=== PATIENT | female | born 2000 | race Caucasian/White ===

== ENCOUNTER 2021-03-11 18:13 | Emergency (ER) | payer OTHER ==
[2021-03-11] MEDS ORDERED: Sodium Chloride 0.9% 1,000 ML IV ONE ×2 (18:58→20:49)
[2021-03-11 19:32] LABS: BLOOD UREA NITROGEN,BUN 10 mg/dL (7.0-18.0); CARBON DIOXIDE,CO2 21.5 mmol/L (21.0-32.0); CHLORIDE,CL 101 mmol/L (98-107); GLUCOSE RANDOM 101 mg/dL (74-106); POTASSIUM,K 3.4 mmol/L (3.5-5.1); SODIUM,NA 139 mmol/L (136-145)
--- NOTE | 2021-03-11 21:02 | US ---
For Patients: As a result of the Century Cures Act, medical imaging exams and procedure reports are released immediately into your electronic medical record. You may view this report before your referring provider. If you have questions, please contact your health care provider. INDICATION: Nausea with elevated bilirubin. FINDINGS: The pancreas is mostly obscured by bowel gas. Gallbladder is unremarkable with no sonographic Prather sign reported and no filling defect. Common bile duct of 3 mm at the simba hepatis. Right kidney is 10 cm in length and sonographically unremarkable. No ascites in the field of view. Liver is normal size. No mass, cyst or ductal dilatation. IMPRESSION: No significant abnormality appreciated. Dictated by Domenico Gray MD @ 03/11/2021 9:02:[address] Domenico Gray @ Mar 11 2021 9:02PM
--- NOTE | 2021-03-11 21:02 | US ---
For Patients: As a result of the Cures Act, medical imaging exams and procedure reports are released immediately into your electronic medical record. You may view this report before your referring provider. If you have questions, please contact your health care provider. INDICATION: First trimester scan, establish dates. Nausea. Pain. TECHNIQUE: Real-time ward-scale imaging of the pelvis was performed. FINDINGS: Sonographic imaging demonstrates a single living intrauterine gestation. The embryo demonstrates a regular cardiac rate measuring 109 beats per minute. The embryo`s crown-rump length measurement of 4.6 mm corresponds to a gestational age of 6 weeks 2 days with a sonographic due date of 30 October 2021. There is a normal-appearing yolk sac. There are no gross abnormalities noted within the embryo at this early state of development. The placenta has not yet developed. The gestational sac has a normal appearance and there is no evidence of a perigestational hemorrhage. The amount of fluid within the sac appears appropriate for gestational age. The cervix is closed. The myometrium appears normal. The ovaries are of normal size. There are no suspicious fluid collections noted in the cul-de-sac. IMPRESSION: Normal first trimester OB ultrasound exam. Gestational age calculated at 6 weeks 2 days. Dictated by Domenico Gray MD @ 03/11/2021 9:00:[address] Domenico Gray @ Mar 11 2021 9:00PM
--- NOTE | 2021-03-11 21:07 | EDM.PDOC ---
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 Patient states she is unsure of her last menstrual cycle but believes to be approximately 4 to 5 weeks . Patient states that she has had a urine confirmation of and has her first OB visit back home in [place] on this coming . Patient states over the past 2 days, she suddenly has felt nauseous and vomiting. Patient states that she is only able to take small sips of fluid without vomiting over the past 2 days. Patient states she is having some upper abdominal pain with vomiting but states that she is not having abdominal pain at baseline. Patient states she has a history of migraine disorder and denies any other health history. Patient denies any trauma or injury or any other associative symptoms. Patient denies any vaginal bleeding or change in discharge. Patient denies fever, chills, chest pain, shortness of breath, or cough. Denies headache, neck stiff ness, change in vision, syncope, or near syncope. Denies diarrhea, constipation, or dysuria. Has not noted any blood in urine or stool. Review of systems: As per history of present illness and below otherwise all systems reviewed and negative. Past medical history: As per history of present illness and as reviewed below otherwise noncontributory. Surgical history: As per history of present illness and as reviewed below otherwise noncontributory. Social history: See social history for further information Family history: As per history of present illness and as reviewed below otherwise noncontributory. Physical exam: General: Patient is alert, oriented, and in no acute distress. Patient laying comfortably on exam table. Vitals stable and reviewed by me. HEENT: Atraumatic, normocephalic, pupils equal and reactive bilaterally, negative for conjunctival pallor or scleral icterus, mucous membranes moist, TMs normal bilaterally, throat clear, neck supple, nontender, trachea midline. No drooling or trismus noted. No meningeal signs. No hot potato voice noted. Lungs: Clear to auscultation, breath sounds equal bilaterally, chest nontender. Heart: S1S2, regular rate and rhythm without overt murmur Abdomen: Soft, nondistended, nontender. Negative for masses or hepatosplenomegaly. Negative for costovertebral tenderness. Pelvis: Stable nontender. Genitourinary: Deferred. Rectal: Deferred. Skin: Intact, warm, dry. No lesions or rashes noted. Extremities: Atraumatic, negative for cords or calf pain. Neurovascular unremarkable. Neuro: Awake, alert, oriented. Cranial nerves II through XII unremarkable. Cerebellum unremarkable. Motor and sensory unremarkable throughout. Exam nonfocal. Notes: Patient is a 20-year-old female who presents emergency room today with concern of nausea and vomiting over the past 2 days with intermittent abdominal pain associated with vomiting in early with unknown dating. Upon arrival to the ED, patient is vitally stable and well-appearing and not actively vomiting on exam. Will obtain basic lab work, initiate a fluid bolus, and obtain transvaginal ultrasound. Mild derangements of CBC unremarkable. Patient noted to have an isolated bilirubin at 1.6, otherwise CMP mild derangements unremarkable. We will also obtain a right upper quadrant ultrasound. Urinalysis does indicate greater than 80 ketones, concerning for dehydration with small bilirubin, trace protein, trace leukocyte Estrace, 0-1 red blood cells, 1-3 white blood cells, and few bacteria. Will treat patient for asymptomatic bacteriuria in and culture. hCG quant is 54,851 today. Transvaginal ultrasound shows a normal first trimester OB ultrasound exam gestational age calculated at 6 weeks and 2 days. Right upper quadrant sound shows no significant abnormality appreciated. Upon reevaluation of patient, she expresses improvement of her symptoms today in the ED remains vitally stable. Given that patient declines any nausea medications today, will send prescription for Diclegis although discussed the potential adverse reaction similar to Benadryl due to the antihistamine classification. We will also send patient a prescription for Keflex due to asymptomatic bacteriuria and will follow urine cultures. Patient does have an appointment this with an OBGYN back home in [place]. 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 Strict return precautions thoroughly discussed with patient. Voices understanding and is agreeable to plan of care. Denies any further questions or concerns at this time. Diagnostics: CBC, CMP, UA, hCG quant, transvaginal ultrasound, right upper quadrant ultrasound Therapeutics: Saline (patient declines any nausea medications and states that she does not want Zofran due to adverse reactions from her past) Prescription: Armida Fisher Impression: Nausea and vomiting in early Intrauterine gestation, 6 weeks Dehydration Asymptomatic bacteriuria in Plan: 1. Please start and/or continue to take your vitamin with folic acid once daily. Take medication as prescribed. 2. Tylenol as needed for pain management. This is safe to use in . 3. 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 Return to the ED as needed and as discussed. Definitive disposition and diagnosis as appropriate pending reevaluation and review of above. 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 ED EXAM, GENERAL - Physical Exam Exam: See Below (see dictation) Course - Vital Signs Last Recorded V/S: Last Vital Signs Temp 98 F 03/11/21 18:25 Pulse 62 03/11/21 19:05 Resp 18 03/11/21 19:05 BP 119/66 03/11/21 19:05 Pulse Ox 100 03/11/21 19:05 - Orders/Labs/Meds Orders: Active Orders 24 hr Category Date Time Status CULTURE URINE [MREF] Stat Lab 03/11/21 20:00 Received Sodium Chloride 0.9% [Normal Saline] 1,000 ml Med 03/11/21 20:49 Active IV STAT Medication Orders Sodium Chloride (Normal Saline) 1,000 mls @ 600 mls/hr IV STAT ONE Stop: 03/11/21 22:28 Last Admin: 03/11/21 21:16 Dose: 600 mls/hr Documented by: KYLE Labs: Laboratory Tests 03/11/21 03/11/21 03/11/21 Range/Units 18:32 18:32 20:00 WBC 9.70 (4.0-11.0) K/uL RBC 4.91 (4.30-5.90) M/uL Hgb 14.1 (12.0-16.0) g/dL Hct 41.1 (36.0-46.0) % MCV 83.7 (80.0-98.0) fL MCH 28.7 (27.0-32.0) pg MCHC 34.3 (31.0-37.0) g/dL RDW Std Deviation 38.5 (28.0-62.0) fl RDW Coeff of Nolvia 13 (11.0-15.0) % Plt Count 418 H (150-400) K/uL MPV 10.10 (7.40-12.00) fL Neut % (Auto) 62.5 (48.0-80.0) % Lymph % (Auto) 29.2 (16.0-40.0) % [place] % (Auto) 7.4 (0.0-15.0) % Eos % (Auto) 0.6 (0.0-7.0) % Baso % (Auto) 0.3 (0.0-1.5) % Neut # (Auto) 6.1 H (1.4-5.7) K/uL Lymph # (Auto) 2.8 H (0.6-2.4) K/uL [place] # (Auto) 0.7 (0.0-0.8) K/uL Eos # (Auto) 0.1 (0.0-0.7) K/uL Baso # (Auto) 0.0 (0.0-0.1) K/uL Nucleated RBC % 0.0 /100WBC Nucleated RBCs # 0 K/uL Sodium 139 (136-145) mmol/L Potassium 3.4 L (3.5-5.1) mmol/L Chloride 101 (98-107) mmol/L Carbon Dioxide 21.5 (21.0-32.0) mmol/L BUN 10 (7.0-18.0) mg/dL Creatinine 0.7 (0.6-1.0) mg/dL Est Cr Clr Drug Dosing 130.40 mL/min Estimated GFR (MDRD) > 60.0 ml/min Glucose 101 (74-106) mg/dL Calcium 9.6 (8.5-10.1) mg/dL Total Bilirubin 1.6 H (0.2-1.0) mg/dL AST 15 (15-37) IU/L ALT 24 (14-63) IU/L Alkaline Phosphatase 68 (46-116) U/L Total Protein 8.1 (6.4-8.2) g/dL Albumin 4.4 (3.4-5.0) g/dL Globulin 3.7 (2.6-4.0) g/dL Albumin/Globulin Ratio 1.2 (0.9-1.6) HCG, Quant 31228.0 mIU/mL Urine Color DARK YELLOW Urine Appearance CLEAR Urine pH 6.0 (5.0-8.0) Ur Specific [place] >= 1.030 (1.001-1.035) Urine Protein TRACE H (NEGATIVE) mg/dL Urine Glucose (UA) NEGATIVE (NEGATIVE) mg/dL Urine Ketones >=80 (NEGATIVE) mg/dL Urine Occult Blood NEGATIVE (NEGATIVE) Urine Nitrite NEGATIVE (NEGATIVE) Urine Bilirubin SMALL H (NEGATIVE) Urine Ictotest NEGATIVE Urine Urobilinogen 1.0 (<2.0) EU/dL Ur Leukocyte Esterase TRACE H (NEGATIVE) Urine RBC 0-1 (0-2/HPF) Urine WBC 1-3 (0-5/HPF) Ur Epithelial Cells OCCASIONAL (NONE-FEW) Urine Bacteria FEW (NEGATIVE) Urine Mucus LIGHT (NONE-MOD) Meds: Medications Generic Name Dose Route Start Last Admin Trade Name Freq PRN Reason Stop Dose Admin Sodium Chloride 1,000 mls @ 600 mls/hr 03/11/21 20:49 03/11/21 21:16 Normal Saline IV 03/11/21 22:28 600 mls/hr STAT ONE Administration Discontinued Medications Generic Name Dose Route Start Last Admin Trade Name Javy ANTOINEN Reason Stop Dose Admin Sodium Chloride 1,000 mls @ 999 mls/hr 03/11/21 18:58 03/11/21 19:11 Normal Saline IV 03/11/21 19:58 999 mls/hr STAT ONE Administration Departure - Departure Time of Disposition: 21:06 Disposition: Home, Self-Care 01 Clinical Impression: Nausea and vomiting during , Intrauterine , Dehydration, Asymptomatic bacteriuria during - Discharge Information Prescriptions: Doxylamine Succinate/Vit B6 [Dicodin Soares 10-10 mg Tablet] 2 tab PO QPM 14 Days #28 tablet. cephALEXin [Keflex] 500 mg PO BID 7 Days #10 cap Referrals: PCP,Not In Area [Primary Care Provider] - Forms: ED Department Discharge Additional Instructions: The following information is given to patients seen in the emergency department who are being discharged to home. This information is to outline your options for follow-up care. We provide all patients seen in our emergency department with a follow-up referral. The need for follow-up, as well as the timing and circumstances, are variable depending upon the specifics of your emergency department visit. If you don't have a primary care physician on staff, we will provide you with a referral. We always advise you to contact your personal physician following an emergency department visit to inform them of the circumstance of the visit and for follow-up with them and/or the need for any referrals to a consulting specialist. The emergency department will also refer you to a specialist when appropriate. This referral assures that you have the opportunity for follow-up care with a specialist. All of these measure are taken in an effort to provide you with optimal care, which includes your follow-up. Under all circumstances we always encourage you to contact your private physician who remains a resource for coordinating your care. When calling for follow-up care, please make the office aware that this follow-up is from your recent emergency room visit. If for any reason you are refused follow-up, please contact the [facility] Emergency Department at and asked to speak to the emergency department charge nurse. [facility] [address] [place] [address] [facility] [address] [place] [address] [facility] [address] [place] [address] 1. Please start and/or continue to take your vitamin with folic acid once daily. Take medication as prescribed. 2. Tylenol as needed for pain management. This is safe to use in . 3. 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 Return to the ED as needed and as discussed. Sepsis Event Note (ED) - Evaluation Sepsis Screening Result: No Definite Risk - Focused Exam Vital Signs: Vital Signs Temp Pulse Resp BP Pulse Ox 03/11/21 19:05 62 18 119/66 100 03/11/21 18:25 98 F 60 16 98/55 L 100 - My Orders Last 24 Hours: My Active Orders 03/11/21 20:00 CULTURE URINE [MREF] Stat 03/11/21 20:49 Sodium Chloride 0.9% [Normal Saline] 1,000 ml IV STAT - Assessment/Plan Last 24 Hours: My Active Orders 03/11/21 20:00 CULTURE URINE [MREF] Stat 03/11/21 20:49 Sodium Chloride 0.9% [Normal Saline] 1,000 ml IV STAT
== END 2021-03-11 21:50 | disposition home or self-care (01) ==
LOC: MW.ED 18:13
DX: O99.281 Endocrine, nutritional and metabolic diseases complicating pregnancy, first trimester (principal); E86.0 Dehydration; O21.9 Vomiting of pregnancy, unspecified; O99.891 Other specified diseases and conditions complicating pregnancy; R82.71 Bacteriuria; Z88.8 Allergy status to other drugs, medicaments and biological substances; Z3A.01 Less than 8 weeks gestation of pregnancy
CPT/HCPCS: 36415; 76705; 76801; 80053; 81001; 84702; 85025; 87086; 99284; J7030